=== PATIENT | female | born 1970 | race Caucasian/White ===

== ENCOUNTER 2017-08-14 13:58 | Emergency (ER) | payer OTHER ==
[~2017-08-14] VITALS: Ht 157.5 cm; Wt 61.8 kg
[2017-08-14 14:05] VITALS: Ht 157.5 cm; Wt 61.8 kg
[2017-08-14] MEDS ORDERED: KETO5DRO79 LEFT EYE (16:27)
[2017-08-14] MEDS ORDERED: FLUORESCEIN STRIP LEFT EYE ONE (16:30)
[2017-08-14] MEDS ORDERED: TETRACAINE 0.5% 4 ML OPH LEFT EYE ONE (16:30)
--- NOTE | 2017-08-14 16:39 | ERD ---
ER Documentation Chief Complaint Chief Complaint left eye pain s/p injured it with a hat 4hrs ago HPI 47-year-old female complaining of left eye pain. Patient stated that she accidentally hit her eye with the bill of her 's ball cap about 4 hours ago. She felt like something is in her eye ever since. Her eyes turn red and teary. She used Visine drops, and ice the eye. Denies injury to the orbit of her eye. Denies blurry vision. Patient had history of right eye surgery, her vision in her right eye has always been bad. ROS All systems reviewed and are negative except as per history of present illness. Medications Home Meds Active Scripts Ketorolac Tromethamine Oph (Ketorolac Tromethamine Oph) 0.4%-5 Ml Opht Drops, 1 DROP LEFT EYE QID Y for PAIN, #1 EA Prov:YAIMATARYN X. [employer]AL [employer]ANGER 08/14/17 PMhx/Soc History of Surgery: No Anesthesia Reaction: No Hx Neurological Disorder: No Hx Respiratory Disorders: No Hx Cardiac Disorders: No Hx Psychiatric Problems: No Hx Miscellaneous Medical Probl: No Hx Alcohol Use: No Hx Substance Use: No Hx Tobacco Use: No Smoking Status: Never smoker Physical Exam Vitals Vital Signs Date Time Temp Pulse Resp B/P Pulse Ox O2 Delivery O2 Flow Rate FiO2 08/14/17 14:05 98.2 76 18 129/84 98 Physical Exam General: Well-developed, well-nourished, conscious and coherent, in no distress Skin: Warm and dry without rash, good texture and turgor Head: Normocephalic without evidence of trauma Eyes: Left conjunctiva mildly erythematous. Pupils equal, round, and reactive to light; extraocular movements are intact Chest: Normal AP diameter. Good expansion without retractions. Nontender. Lungs are clear to auscultate bilaterally with good tidal volume Heart: Regular rate and rhythm. No murmur, rub, or gallops heard Extremities: Full range of motion. Good strength bilaterally. No clubbing, cyanosis, or edema. Peripheral pulses are intact. Sensation intact Neuro: Alert and oriented 4, GCS 15. Cranial nerves grossly intact. Motor and sensory exams nonfocal. Moves all extremities. Speech clear. Gait normal Results 24 hrs Current Medications Medications (Trade) Dose Ordered Sig/Bishop Route PRN Reason Start Time Stop Time Status Last Admin Dose Admin Tetracaine HCl (Tetracaine 0.5% Steri-Unit Saundra) 1 drop ONCE ONCE LEFT EYE 08/14/17 16:30 08/14/17 16:31 DC Fluorescein Sodium (Rikzx-A-Bvese) 1 strip ONCE ONCE LEFT EYE 08/14/17 16:30 12 16:31 DC Procedures/MDM Tetracaine ophthalmic solution was instilled into patient's left eye. Fluoresceins dye was then applied. Patient was examined under Wood's lamp. Small area of dye uptake is noted at about 2 o'clock on the left cornea. No waterfall sign. Visual acuity: Left 20/30, right 20/100. Patient appears to have a mild corneal abrasion on her left eye. I doubt globe rupture, hyphema, or orbital fracture. Patient appears well, stable for discharge and outpatient management. Medical decision making shared with patient and family. Education provided to patient and family. Patient and family expressed understanding of the plan. Medications on discharge: Ketorolac ophthalmic. Follow-up: Primary care provider in 2-3 days or return to ED if worse. Disclaimer: Inadvertent spelling and grammatical errors are likely due to EHR/ dictation software use and do not reflect on the overall quality of patient care. Also, please note that the electronic time recorded on this note does not necessarily reflect the actual time of the patient encounter. Departure Diagnosis: Primary Impression: Corneal abrasion, left Encounter type: initial encounter Qualified Code: S05.02XA - Abrasion of left cornea, initial encounter Condition: Stable Patient Instructions: Corneal Abrasion Referrals: [facility] Hours: Mon - Fri 9:00 AM - 5:00 PM Additional Instructions: Follow up with an motor express clerk if not better in 3 days. TARYN ERWIN NP Aug 14, 2017 16:39
== END 2017-08-14 17:03 | disposition home or self-care (01) ==
LOC: FTE 13:58
DX: S05.02XA Injury of conjunctiva and corneal abrasion without foreign body, left eye, initial encounter (principal); W50.0XXA Accidental hit or strike by another person, initial encounter; Y92.9 Unspecified place or not applicable
CPT/HCPCS: 99283